=== PATIENT | male | born 1940 | race Caucasian/White ===

== ENCOUNTER 2023-08-20 07:53 | Day surgery (SDC) | payer MEDICARE, MEDICAID, SELFPAY ==
--- NOTE | 2023-08-20 07:10 | W.PREOPHP ---
Assessment and Plan Assessment and plan (1) Posterior subcapsular age-related cataract of left eye: Status: Acute Assessment and plan: Assessment: Dense nuclear/posterior subcapsular cataract of the left eye. Plan: Cataract extraction with lens implantation of the left eye. (2) Nuclear age-related cataract, left eye: Status: Acute Assessment and plan: Assessment: Dense nuclear/posterior subcapsular cataract of the left eye. Plan: Cataract extraction with lens implantation of the left eye. History of Present Illness History of Present Illness Chief Complaint: Progressive decreased vision, both eyes Narrative: The patient is an 82-year-old male who presents with progressive decreased vision in both eyes at both distance and near. He claims he can no longer see clearly enough to drive, read or ordoñez. On examination he was noted to have dense bilateral cataracts with visual acuity of 20/80 OD, 20/200 OS. The option of cataract surgery was offered to the patient and he wished to proceed. Review of Systems All systems reviewed & are unremarkable except as noted in HPI and below PFSH All Active Problems Posterior subcapsular age-related cataract of left eye (Acute) Nuclear age-related cataract, left eye (Acute) Medical History Myocardial infarction 1997 Urge incontinence of urine Osteoarthritis Obesity Enlarged prostate Hypertensive disorder Borderline hyperlipidemia Depressive disorder COPD (chronic obstructive pulmonary disease) Chronic kidney disease Stage 3 Arteriosclerosis of coronary artery Surgical History History of cholecystectomy History of carpal tunnel release History of surgery Chest surgery procedure History of orthopedic surgery H/O arthroscopic knee surgery History of cardiac catheterization 1997 stent placement, 2013 History of total right knee replacement Family History Other Diabetes Heart disease Hyperlipidemia Hypertension Stroke Social History Smoking/Tobacco Use Status: Former Tobacco Use Quit Date: 10/18/89 Smoking risk assessment performed?: Yes Alcohol Intake: former Drug use: Never Substance use type: does not use Housing: house Additional Social history: Unable to assess privatley Meds Allergies and Home Medications Allergies Allergy/AdvReac Type Severity Reaction Status Date / Time codeine Allergy Intermediate fever Verified 08/20/23 08:46 pneumococcal vaccine Allergy Unknown Verified 08/20/23 08:46 fluticasone AdvReac Intermediate Headache Verified 08/20/23 08:46 Home Medications Medication Instructions Recorded Confirmed Type acetaminophen 500 mg tablet 500 mg PO Q4H PRN 08/17/23 08/20/23 History (Acetaminophen Extra Strength) aspirin 81 mg tablet,delayed 81 mg PO DAILY 08/17/23 08/20/23 History release (Adult Low Dose Aspirin) atorvastatin 80 mg tablet 80 mg PO DAILY 08/17/23 08/20/23 History fluticasone propionate 50 1 spray intranasal DAILY PRN 08/17/23 08/20/23 History mcg/actuation nasal spray,suspension (Allergy Relief (fluticasone)) losartan 25 mg tablet 50 mg PO DAILY 08/17/23 08/20/23 History metoprolol succinate 200 mg 200 mg PO DAILY 08/17/23 08/20/23 History tablet,extended release 24 hr nitroglycerin 0.4 mg sublingual 0.4 mg sublingual Q5M PRN 08/17/23 08/20/23 History tablet (Nitrostat) omeprazole 20 mg capsule,delayed 20 mg PO DIRECTED 08/17/23 08/20/23 History release tamsulosin 0.4 mg capsule 0.8 mg PO DAILY 08/17/23 08/20/23 History torsemide 20 mg tablet 20 mg PO DIRECTED 08/17/23 08/20/23 History umeclidinium 62.5 mcg/actuation 1 inh inhalation DAILY 08/17/23 08/20/23 History blister powder for inhalation (Incruse Ellipta) Exam Eyes Other: Significant for visual acuity of 20/80 OD, 20/200 OS. Extract motility is normal. Intraocular pressure is 11 OU. Slit-lamp examination is significant for ectropion of the left lower lid. A dense nuclear/cortical/posterior subcapsular cataract is present OU. Funduscopic examination reveals disc cupping of 0.45 OU with normal vessels, macula, peripheral retina and vitreous. Resp Auscultation: clear to auscultation bilaterally Cardio Rate: regular rate Rhythm: regular rhythm
[2023-08-20 08:37] VITALS: BP 165/66; PULSE 66; RESP 18; TEMP 36.8; O2SAT 94
[2023-08-20] MEDS: Tropicam./Phenyleph. (1/2.5%) 5 ML BTL OS ×3 (08:43→09:00)
--- NOTE | 2023-08-20 09:09 | ANES.PREOP_ITS ---
General Info Date of Service Date Performed: 08/20/23 Height: 5 ft 7 in Weight: 90.9 kg Body Mass Index (BMI): 31.4 Surgical Procedure: Operation Date: 08/20/23 10:40 Proposed Procedure Side Surgeon p Cataract Extraction with IOL Implant Left Tato Uriarte MD Meds Allergies and Home Medications Allergies Allergy/AdvReac Type Severity Reaction Status Date / Time codeine Allergy Intermediate fever Verified 08/20/23 08:46 pneumococcal vaccine Allergy Unknown Verified 08/20/23 08:46 fluticasone AdvReac Intermediate Headache Verified 08/20/23 08:46 Home Medication Medication Instructions Recorded acetaminophen 500 mg tablet 500 mg PO Q4H PRN 08/17/23 (Acetaminophen Extra Strength) aspirin 81 mg tablet,delayed 81 mg PO DAILY 08/17/23 release (Adult Low Dose Aspirin) atorvastatin 80 mg tablet 80 mg PO DAILY 08/17/23 fluticasone propionate 50 1 spray intranasal DAILY PRN 08/17/23 mcg/actuation nasal spray,suspension (Allergy Relief (fluticasone)) losartan 25 mg tablet 50 mg PO DAILY 08/17/23 metoprolol succinate 200 mg 200 mg PO DAILY 08/17/23 tablet,extended release 24 hr nitroglycerin 0.4 mg sublingual 0.4 mg sublingual Q5M PRN 08/17/23 tablet (Nitrostat) omeprazole 20 mg capsule,delayed 20 mg PO DIRECTED 08/17/23 release tamsulosin 0.4 mg capsule 0.8 mg PO DAILY 08/17/23 torsemide 20 mg tablet 20 mg PO DIRECTED 08/17/23 umeclidinium 62.5 mcg/actuation 1 inh inhalation DAILY 08/17/23 blister powder for inhalation (Incruse Ellipta) Current Visit Medications: Current Medications Generic Name Dose Route Start Last Admin Trade Name Freq PRN Reason Stop Dose Admin Acetaminophen 1,000 mg 08/20/23 06:00 Acetaminophen 500 Mg Tab PO 09/19/23 05:59 Q4H PRN PRN Balanced Salt Solution 500 ml 08/20/23 06:00 Balanced Salt Soln.-Plus 500 Ml Bag OP 09/19/23 05:59 DIRECTED DANNY Miscellaneous Medication 0 ml 08/20/23 06:00 Prednisolone 1%, Moxifloxacin 0.5%, Nepafenac 0.1% 5ml Btl OS 09/19/23 05:59 DIRECTED [facility] Miscellaneous Medication 0 ml 08/20/23 06:00 08/20/23 09:00 Tropicam./Phenyleph. (1/2.5%) 5 Ml Btl OS 09/19/23 05:59 1 drp DIRECTED DANNY Administration Tetracaine HCl 0 ml 08/20/23 06:00 Tetracaine 0.5% 4 Ml Btl OS 09/19/23 05:59 DIRECTED [facility] PFSH Active Problems Active Problems: Problem Status Onset Code Posterior subcapsular age-related cataract of left eye H25.042 Nuclear age-related cataract, left eye H25.12 Medical History Medical History Myocardial infarction 1997 Urge incontinence of urine Osteoarthritis Obesity Enlarged prostate Hypertensive disorder Borderline hyperlipidemia Depressive disorder COPD (chronic obstructive pulmonary disease) Chronic kidney disease Stage 3 Arteriosclerosis of coronary artery Surgical History Surgical History History of cholecystectomy History of carpal tunnel release History of surgery Chest surgery procedure History of orthopedic surgery H/O arthroscopic knee surgery History of cardiac catheterization 1997 stent placement, 2013 History of total right knee replacement Tobacco Smoking/Tobacco Use Status: Former Tobacco Use Alcohol Alcohol Intake: former Substance Use Substance use: Never Substance use type: does not use Vital Signs and Lab Results Vital Signs Most Recent Vital Signs in EMR: Most Recent Vital Signs Temp Pulse Resp BP Pulse Ox 36.8 C 66 18 165/66 H 94 08/20/23 08:37 08/20/23 08:37 08/20/23 08:37 08/20/23 08:37 08/20/23 08:37 Lab Results Blood Type / Crossmatch: No Data to Display Complete Blood Count: No Data to Display Complete Metabolic Panel: No Data to Display Liver Function Panel: No Data to Display Coagulation Panel: No Data to Display Cardiac Panel: No Data to Display Arterial Blood Gas: No Data to Display Venous Blood Gas: No Data to Display Pancreas Panel: No Data to Display Thyroid Panel: No Data to Display Infectious Disease: No Data to Display Blood Cultures: No Data to Display Toxicology Panel: No Data to Display Anesthesia Assessment and Plan Anesthesia History Personal History: No History of Anesthesia Complications Family History: No Family History of Anesthesia Complications Exercise Tolerance Exercise Tolerance: Metabolic Equivalents>4 Pertinent Negatives Pertinent Negatives: No Symptoms of GERD Cardiac & Pulmonary Exam Cardiac Exam: Normal S1/S2 Heart Sounds Pulmonary Exam: Clear Bilateral Breath Sounds Implantable Cardiac Device Does patient have a Pacemaker or an ICD?: No Airway Exam Known Difficult Airway: No Mallampati Class: 3 Mouth Opening: Normal (> 3cm) Thyromental Distance: Greater than 3 cm Neck Range of Motion: Limited ROM Neck Circumference: Normal Teeth Condition: Generalized Poor Dentition ASA Classification ASA Score: ASA 3 Emergency Case?: No NPO Status NPO Status: NPO Clears >2 hours, Solids >8 hours Anesthesia Plan Resuscitation Status: Full Code Anesthesia Technique: MAC Anesthesia Airway Planned: Natural Airway Monitors Used: Standard Monitors
[2023-08-20 09:48] VITALS: BMI 31.4
[2023-08-20] MEDS: Tetracaine 0.5% 4 ML BTL OS (10:00)
[2023-08-20] MEDS: Povidone-Iodine Ophth 30 ML BTL (10:00)
[2023-08-20] MEDS: Balanced Salt Soln.-PLUS 500 ML BAG OP (10:02)
[2023-08-20] MEDS: Duovisc Viscoelastic System EACH 1 EACH (10:03)
[2023-08-20] MEDS: Lidocaine 1% Pres-Free 5 ML VIAL (10:03)
[2023-08-20] MEDS: Phenylephrine/Lidocaine (15/10) MG/ML 1 ML VIAL (10:04)
[2023-08-20] MEDS: Trypan Blue 0.06% 0.5 ML SYR (10:08)
[2023-08-20 10:39] VITALS: BP 129/60; PULSE 65; RESP 18; TEMP 36.9; O2SAT 96
--- NOTE | 2023-08-20 10:41 | W.PM.DSUDISC ---
Date of service: 08/20/23 Time of Service: 10:41 Discharge Plan Disposition Patient Disposition: Home Discharge Details Attending Provider: Tato Uriarte Primary Care Provider: Eliu Manzo Home Meds and New Rx's Prescriptions: No Action atorvastatin 80 mg tablet 80 mg PO DAILY fluticasone propionate [Allergy Relief (fluticasone)] 50 mcg/actuation spray,suspension 1 spray intranasal DAILY PRN Patient Comments: 08/20/23: pt has allergy to this, doesnt use Rx Instructions: administer into each nostril Incruse Ellipta 62.5 mcg/actuation blister with device 1 inh INHALATION DAILY losartan 25 mg tablet 50 mg PO DAILY metoprolol succinate 200 mg tablet extended release 24 hr 200 mg PO DAILY omeprazole 20 mg capsule,delayed release(DR/EC) 20 mg PO DIRECTED tamsulosin 0.4 mg capsule 0.8 mg PO DAILY torsemide 20 mg tablet 20 mg PO DIRECTED aspirin [Adult Low Dose Aspirin] 81 mg tablet,delayed release (DR/EC) 81 mg PO DAILY nitroglycerin [Nitrostat] 0.4 mg tablet, sublingual 0.4 mg sublingual Q5M PRN Patient Comments: 08/20/23 pt reports hasn't taken in years Rx Instructions: do not exceed 3 doses per episode acetaminophen [Acetaminophen Extra Strength] 500 mg tablet 500 mg PO Q4H PRN Discharge Instructions Stand Alone Forms: Post-op Topical Cataract, Dominguez Silvaey (DSU) Discharge Orders Discharge Orders: Discharge Order (Routine); Ordered 08/20/23 Ordered By: Tato Uriarte DS: Diagnosis Discharge Diagnosis (1) Posterior subcapsular age-related cataract of left eye: Status: Resolved (2) Nuclear age-related cataract, left eye: Status: Resolved (3) Cortical age-related cataract, left eye: Status: Resolved (4) Mature cataract: Status: Resolved
--- NOTE | 2023-08-20 10:43 | ROE_ITS ---
Date of service: 08/20/23 Time of Service: 10:43 Operative Note Operative Note DATE OF PROCEDURE: 08/20/23 PRE-OP DIAGNOSIS: Mature, advanced, nuclear/cortical/posterior subcapsular cataract, left eye Poorly dilating pupil, left eye, secondary to tamsulosin treatment Absent red reflex, left eye secondary to advanced cataract POST-OP DIAGNOSIS: same PROCEDURE: Cataract extraction using phacoemulsification with intraocular lens implant, left eye Pupillary dilation and iris stabilization with 7.0 mm pupillary expansion device Capsular staining with VisionBlue SURGEON: Tato Uriarte ANESTHESIA TYPE: Local By Surgeon and MAC Refer to Anesthesia Record PATHOLOGY: none sent COMPLICATIONS: None Patient was transported to: same day Patient's condition: stable Implants: Brock Clareon [id number] Indications: Progressive decreased vision due to cataract, left eye Procedure Description: CATARACT SURGERY OPERATIVE REPORT PREOPERATIVE DIAGNOSIS: Mature, advanced, nuclear/cortical/posterior subcapsular cataract, left eye Poorly dilating pupil, left eye, secondary to tamsulosin treatment Absent red reflex, left eye secondary to mature cataract POSTOPERATIVE DIAGNOSIS: Same OPERATION: Cataract extraction using phacoemulsification with posterior chamber intraocular lens implant, left eye. Pupillary dilation and iris stabilization using 7.0 mm pupillary expansion device Capsular staining with VisionBlue IOL: IOL [employer]/Model: Brock Clareon [id number] IOL Power: + 23.5 diopters IOL Serial Number: [id number] Optic Diameter: 6.0mm Haptic/Overall Diameter: 13.0mm PHACO INFO: Brock McPhyurion Vision System with OZil and Active Fluidics Cumulative Dispersed Energy (CDE): 44.96 seconds SURGEON: Tato Uriarte MD, DEZ ANESTHESIA: Monitored Anesthesia Care (MAC), with local sub-tenon's anesthetic infiltration COMPLICATIONS: None SPECIMENS: None INDICATIONS FOR PROCEDURE: The patient is an 83-year-old male who presented with complaints of diminished visual acuity in his left eye. He is noted to have a dense, mature cataract in the left eye with poor visual acuity and no view of the retina. He also takes tamsulosin with a very poorly dilating pupil. The option of cataract surgery was offered to the patient and he wished to proceed. See office notes for detailed information. PROCEDURE: The correct surgical eye was identified and marked as the left eye and the pupil was dilated in the preoperative area using mydriatics and cycloplegics. The dilated pupil size was 4.0 mm. The patient elected to proceed without oral sedation. The patient was brought to the operating room where cardiopulmonary monitoring was instituted and surgical time-out was performed, confirming the correct operative eye and IOL power. Topical anesthesia was administered and ophthalmic povidone-iodine 5% was instilled into the conjunctival fornices. The go-ocular area was prepped with Betadine 10% solution and draped in the usual sterile fashion for intraocular surgery, including an aperture drape. A Tegaderm transparent film dressing was cut in half and used to cover the lashes and lid margins. Care was taken to sequester the lashes and lid margins under the Tegaderm dressing. A lid specu lum was placed between the lids of the operative eye and the Brock GRIDOR Revalia operating microscope was maneuvered into position. Jim scissors were then used to make a conjunctival buttonhole approximately 6mm posterior to the limbus in the inferonasal quadrant. Blunt dissection was carried out to expose bare sclera, and a blunt-tipped sub-tenon?s anesthesia cannula was introduced and passed posteriorly along the globe where non- preserved plain lidocaine was injected into posterior sub-Tenon?s space. A sideport knife was used to make a paracentesis port. Intraocular phenylephrine/lidocaine was injected into the anterior chamber. The anterior chamber was then filled with cohesive viscoelastic. A keratome knife was used construct a two-plane clear corneal tunnel extending 2.0mm into clear cornea. A 7.0 mm pupillary expansion device was inserted into the pupillary space using a Kuglen hook. The cohesive viscoelastic was then removed using the irrigation/aspiration handpiece. VisionBlue was then injected into the anterior chamber and painted over the anterior lens capsule and allowed to sit for 30 seconds. VisionBlue was then irrigated out of the eye, and the anterior chamber filled with Viscoat. A flap was raised on the anterior capsule and capsulorhexis forceps were used to complete a continuous curvilinear capsulorhexis of 5.0 mm. Balanced salt solution was then used to perform cortical cleaving hydrodissection and nuclear hydrodelineation until the lens could be freely rotated within the capsular bag. The lens nucleus was then disassembled and removed within the capsular bag and iris plane using phacoemulsification. A deep groove was sculpted in the central nucleus, which was then rotated 180 degrees and the groove continued. The nucleus was then split into 2 halves, although there was a fibrous posterior plate which was difficult to crack. Additional sculpting was performed until the nucleus could be cracked into 2 halves. Each James nucleus was then subtyped into multiple small fragments, under the protection of the additional dispersive viscoelastic. Residual cortical material was removed using the irrigation/aspiration handpiece. There was essentially no residual cortical material after removal of the dense nucleus. The posterior capsule was carefully polished to remove as much residual lens epithelial cells as safely possible. The capsular bag was then inflated and the anterior chamber deepened with viscoelastic. The lens implant described above was inserted into the capsular bag using the Brock Autonome Injector. A Kuglen hook was used to dial the IOL into position. The pupillary expansion device was then removed in the reverse order of its insertion. Residual viscoelastic was then removed first from posterior to the IOL, then from the anterior chamber using the I/A handpiece. The lens implant was noted to center nicely within the capsular bag. The incisions were stromally hydrated, and the anterior chamber was reformed using BSS. Then 0.5cc of moxifloxacin 1.0mg/ml were injected into the capsular bag and anterior chamber. The incisions were checked with a Weck spear and found to be secure. Several drops of ophthalmic povidone-iodine 5% were then applied to the eye followed by two drops of Imprimis combination prednisolone/moxifloxacin/nepafenac solution. The drapes were removed and a clear plastic protective eye shield was placed over the eye. The patient was then returned to Same Day Surgery in stable condition.
--- NOTE | 2023-08-20 10:57 | W.ANESPOSTOP ---
Postoperative Evaluation Date, Time and Location Date Performed: 08/20/23 Time Performed: 10:53 Patient Location: Day Surgery Unit Vital Signs Most Recent Imported Vital Signs: Most Recent Vital Signs Temp Pulse Resp BP Pulse Ox 36.9 C 65 18 129/60 96 08/20/23 10:39 08/20/23 10:39 08/20/23 10:39 08/20/23 10:39 08/20/23 10:39 Pain Score Most Recent Pain Score: Most Recent Pain Score Pain Level 0 08/20/23 10:39 Assessment Mental Status: Awake (Alert & Oriented to Patient Baseline) Airway and Respiratory Function: Patent airway with normal (patient baseline) respiratory exam Cardiovascular Function: Hemodynamically Stable Hydration Status: Adequately Hydrated Nausea & Vomiting: No Nausea or Vomiting Pain: Pt. Denies Any Pain Peripheral Nerve Block: Patient did not receive a nerve block
== END 2023-08-20 11:01 | disposition home or self-care (01) ==
LOC: SUR 07:56
PROVIDERS: PCP Family Medicine; Visit Provider Ophthalmology
PROC: (CPT 66982; principal; 2023-08-20 10:30)
DX: H25.042 Posterior subcapsular polar age-related cataract, left eye (principal); H25.12 Age-related nuclear cataract, left eye; H25.012 Cortical age-related cataract, left eye; I10 Essential (primary) hypertension
CPT/HCPCS: 66982; 00123; V2632

== ENCOUNTER 2023-09-03 11:10 | Day surgery (SDC) | payer MEDICARE, MEDICAID, SELFPAY ==
[2023-09-03 11:15] VITALS: BP 167/63; PULSE 65; RESP 16; TEMP 36.4; O2SAT 95
[2023-09-03] MEDS: Tropicam./Phenyleph. (1/2.5%) 5 ML BTL OD ×3 (11:23→11:35)
[2023-09-03 11:40] VITALS: BMI 31.5
--- NOTE | 2023-09-03 11:40 | W.ANESPRE ---
General Info Date of Service Date Performed: 09/03/23 Height: 5 ft 7 in Weight: 91.3 kg Body Mass Index (BMI): 31.5 Surgical Procedure: Operation Date: 09/03/23 14:40 Proposed Procedure Side Surgeon p Cataract Extraction with IOL Implant Right Tato Uriarte MD Meds Allergies and Home Medications Allergies Allergy/AdvReac Type Severity Reaction Status Date / Time codeine Allergy Intermediate fever Verified 09/03/23 11:26 pneumococcal vaccine Allergy Unknown Verified 09/03/23 11:26 fluticasone AdvReac Intermediate Headache Verified 09/03/23 11:26 Home Medication Medication Instructions Recorded acetaminophen 500 mg tablet 500 mg PO Q4H PRN 08/17/23 (Acetaminophen Extra Strength) aspirin 81 mg tablet,delayed 81 mg PO DAILY 08/17/23 release (Adult Low Dose Aspirin) atorvastatin 80 mg tablet 80 mg PO DAILY 08/17/23 fluticasone propionate 50 1 spray intranasal DAILY PRN 08/17/23 mcg/actuation nasal spray,suspension (Allergy Relief (fluticasone)) losartan 25 mg tablet 50 mg PO DAILY 08/17/23 metoprolol succinate 200 mg 200 mg PO DAILY 08/17/23 tablet,extended release 24 hr nitroglycerin 0.4 mg sublingual 0.4 mg sublingual Q5M PRN 08/17/23 tablet (Nitrostat) omeprazole 20 mg capsule,delayed 20 mg PO DIRECTED 08/17/23 release tamsulosin 0.4 mg capsule 0.8 mg PO DAILY 08/17/23 torsemide 20 mg tablet 20 mg PO DIRECTED 08/17/23 umeclidinium 62.5 mcg/actuation 1 inh inhalation DAILY 08/17/23 blister powder for inhalation (Incruse Ellipta) Current Visit Medications: Current Medications Generic Name Dose Route Start Last Admin Trade Name Freq PRN Reason Stop Dose Admin Acetaminophen 1,000 mg 09/03/23 06:00 Acetaminophen 500 Mg Tab PO 10/03/23 05:59 Q4H PRN PRN Balanced Salt Solution 500 ml 09/03/23 06:00 Balanced Salt Soln.-Plus 500 Ml Bag OP 10/03/23 05:59 DIRECTED DANNY Miscellaneous Medication 0 ml 09/03/23 06:00 09/03/23 11:35 Tropicam./Phenyleph. (1/2.5%) 5 Ml Btl OD 10/03/23 05:59 1 drp DIRECTED DANNY Administration Miscellaneous Medication 0 ml 09/03/23 06:00 Prednisolone 1%, Moxifloxacin 0.5%, Bromfenac 0.09% 5ml Btl OD 10/03/23 05:59 DIRECTED DANNY Tetracaine HCl 0 ml 09/03/23 06:00 Tetracaine 0.5% 4 Ml Btl OD 10/03/23 05:59 DIRECTED DANNY PFSH Active Problems Active Problems: Problem Status Onset Code Posterior subcapsular age-related cataract, right eye H25.041 Nuclear age-related cataract, right eye H25.11 Mature cataract H26.8 Cortical age-related cataract, left eye H25.012 Posterior subcapsular age-related cataract of left eye H25.042 Nuclear age-related cataract, left eye H25.12 Medical History Medical History Myocardial infarction 1997 Urge incontinence of urine Osteoarthritis Obesity Enlarged prostate Hypertensive disorder Borderline hyperlipidemia Depressive disorder COPD (chronic obstructive pulmonary disease) Chronic kidney disease Stage 3 Arteriosclerosis of coronary artery Surgical History Surgical History History of cataract surgery History of cholecystectomy History of carpal tunnel release History of surgery Chest surgery procedure History of orthopedic surgery H/O arthroscopic knee surgery History of cardiac catheterization 1997 stent placement, 2013 History of total right knee replacement Tobacco Smoking/Tobacco Use Status: Former Tobacco Use Alcohol Alcohol Intake: former Substance Use Substance use: Never Substance use type: does not use Vital Signs and Lab Results Vital Signs Most Recent Vital Signs in EMR: Most Recent Vital Signs Temp Pulse Resp BP Pulse Ox 36.4 C L 65 16 167/63 H 95 09/03/23 11:15 09/03/23 11:15 09/03/23 11:15 09/03/23 11:15 09/03/23 11:15 Lab Results Blood Type / Crossmatch: No Data to Display Complete Blood Count: No Data to Display Complete Metabolic Panel: No Data to Display Liver Function Panel: No Data to Display Coagulation Panel: No Data to Display Cardiac Panel: No Data to Display Arterial Blood Gas: No Data to Display Venous Blood Gas: No Data to Display Pancreas Panel: No Data to Display Thyroid Panel: No Data to Display Infectious Disease: No Data to Display Blood Cultures: No Data to Display Toxicology Panel: No Data to Display Anesthesia Assessment and Plan Anesthesia History Personal History: No History of Anesthesia Complications Family History: No Family History of Anesthesia Complications Exercise Tolerance Exercise Tolerance: Metabolic Equivalents>4 Cardiac & Pulmonary Exam Cardiac Exam: Normal S1/S2 Heart Sounds Pulmonary Exam: Clear Bilateral Breath Sounds Implantable Cardiac Device Does patient have a Pacemaker or an ICD?: No Airway Exam Known Difficult Airway: No Mallampati Class: 3 Mouth Opening: Normal (> 3cm) Thyromental Distance: Greater than 3 cm Neck Range of Motion: Limited ROM Neck Circumference: Normal Teeth Condition: Generalized Poor Dentition ASA Classification ASA Score: ASA 3 Emergency Case?: No NPO Status NPO Status: NPO Clears >2 hours, Solids >8 hours Anesthesia Plan Resuscitation Status: Full Code Anesthesia Technique: MAC Anesthesia Airway Planned: Natural Airway Monitors Used: Standard Monitors
[2023-09-03] MEDS: Duovisc Viscoelastic System EACH 1 EACH (12:28)
[2023-09-03] MEDS: Tetracaine 0.5% 4 ML BTL OD (12:29)
[2023-09-03] MEDS: Balanced Salt Soln.-PLUS 500 ML BAG OP (12:29)
[2023-09-03] MEDS: Lidocaine 1% Pres-Free 5 ML VIAL (12:30)
[2023-09-03] MEDS: Phenylephrine/Lidocaine (15/10) MG/ML 1 ML VIAL (12:30)
[2023-09-03] MEDS: Povidone-Iodine Ophth 30 ML BTL (12:31)
[2023-09-03] MEDS: Trypan Blue 0.06% 0.5 ML SYR (12:39)
[2023-09-03 12:58] VITALS: BP 173/69; PULSE 62; RESP 16; TEMP 36.7; O2SAT 95
--- NOTE | 2023-09-03 13:00 | W.PM.DSUDISC ---
Date of service: 09/03/23 Time of Service: 13:00 Discharge Plan Disposition Patient Disposition: Home Discharge Details Attending Provider: Tato Uriarte Primary Care Provider: Eliu Manzo Home Meds and New Rx's Prescriptions: No Action atorvastatin 80 mg tablet 80 mg PO DAILY fluticasone propionate [Allergy Relief (fluticasone)] 50 mcg/actuation spray,suspension 1 spray intranasal DAILY PRN Patient Comments: 08/20/23: pt has allergy to this, doesnt use Rx Instructions: administer into each nostril Incruse Ellipta 62.5 mcg/actuation blister with device 1 inh INHALATION DAILY losartan 25 mg tablet 50 mg PO DAILY metoprolol succinate 200 mg tablet extended release 24 hr 200 mg PO DAILY omeprazole 20 mg capsule,delayed release(DR/EC) 20 mg PO DIRECTED tamsulosin 0.4 mg capsule 0.8 mg PO DAILY torsemide 20 mg tablet 20 mg PO DIRECTED aspirin [Adult Low Dose Aspirin] 81 mg tablet,delayed release (DR/EC) 81 mg PO DAILY nitroglycerin [Nitrostat] 0.4 mg tablet, sublingual 0.4 mg sublingual Q5M PRN Patient Comments: 08/20/23 pt reports hasn't taken in years Rx Instructions: do not exceed 3 doses per episode acetaminophen [Acetaminophen Extra Strength] 500 mg tablet 500 mg PO Q4H PRN Discharge Instructions Stand Alone Forms: Post-op Topical Cataract, Dominguez Silvaey (DSU) Discharge Orders Discharge Orders: Discharge Order (Routine); Ordered 09/03/23 Ordered By: Tato Uriarte DS: Diagnosis Discharge Diagnosis (1) Posterior subcapsular age-related cataract, right eye: Status: Resolved (2) Nuclear age-related cataract, right eye: Status: Resolved
--- NOTE | 2023-09-03 13:01 | W.PM.OP ---
Date of service: 09/03/23 Time of Service: 13:01 Operative Note Operative Note DATE OF PROCEDURE: 09/03/23 PRE-OP DIAGNOSIS: Dense nuclear/posterior subcapsular cataract, right eye Poorly dilating pupil, right eye Absent red reflex, right eye POST-OP DIAGNOSIS: same PROCEDURE: Cataract extraction using phacoemulsification with intraocular lens implant, right eye SURGEON: Tato Uriarte ANESTHESIA TYPE: Local By Surgeon and MAC Refer to Anesthesia Record ESTIMATED BLOOD LOSS: 0 PATHOLOGY: none sent COMPLICATIONS: None Patient was transported to: same day Patient's condition: stable Implants: Brock Clareon [id number] Indications: Progressive decreased vision due to cataract, right eye Poorly dilating pupil, right eye Procedure Description: CATARACT SURGERY OPERATIVE REPORT PREOPERATIVE DIAGNOSIS: Dense nuclear/posterior subcapsular cataract, right eye Poorly dilating pupil, right eye Absent red reflex, right eye POSTOPERATIVE DIAGNOSIS: Same OPERATION: Cataract extraction using phacoemulsification with posterior chamber intraocular lens implant, right eye. Pupillary dilation and iris stabilization with 7.0 mm pupillary expansion device Capsular staining with VisionBlue IOL: IOL Marble Installer/Model: Brock Clareon [id number] IOL Power: + 23.5 diopters IOL Serial Number: [id number] Optic Diameter: 6.0mm Haptic/Overall Diameter: 13.0mm PHACO INFO: Brock Centurion Vision System with OZil and Active Fluidics Cumulative Dispersed Energy (CDE): 29.46 seconds SURGEON: Tato Uriarte MD, DEZ ANESTHESIA: Monitored Anesthesia Care (MAC), with local sub-tenon's anesthetic infiltration COMPLICATIONS: None SPECIMENS: None INDICATIONS FOR PROCEDURE: The patient is an 83-year-old male with history of 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 He is significantly symptomatic that he desires cataract surgery and attempt to improve and maximize his vision. He has already undergone cataract surgery in the left eye and is doing well postoperatively. He now presents for cataract surgery in the right eye. See office notes for detailed information. PROCEDURE: The correct surgical eye was identified and marked as the right eye and the pupil was dilated in the preoperative area using mydriatics and cycloplegics. The dilated pupil size was 3.0 mm. The patient elected to proceed without oral sedation. The patient was brought to the operating room where cardiopulmonary monitoring was instituted and surgical time-out was performed, confirming the correct operative eye and IOL power. Topical anesthesia was administered and ophthalmic povidone-iodine 5% was instilled into the conjunctival fornices. The go-ocular area was prepped with Betadine 10% solution and draped in the usual sterile fashion for intraocular surgery, including an aperture drape. A Tegaderm transparent film dressing was cut in half and used to cover the lashes and lid margins. Care was taken to sequester the lashes and lid margins under the Tegaderm dressing. A lid speculum was placed between the lids of the operative eye and the Crystal-Kellee operating microscope was maneuvered into position. Jim scissors were then used to make a conjunctival buttonhole approximately 6mm posterior to the limbus in the inferonasal quadrant. Blunt dissection was carried out to expose bare sclera, and a blunt-tipped sub-tenon?s anesthesia cannula was introduced and passed posteriorly along the globe where non-preserved plain lidocaine was injected into posterior sub-Tenon?s space. A sideport knife was used to make a paracentesis port. Intraocular phenylephrine/lidocaine was injected into the anterior chamber. The anterior chamber was then filled with cohesive viscoelastic. A keratome knife was used to construct a two--plane clear corneal tunnel extending 2.0mm into clear cornea. A 7.0 mm pupillary expansion device was inserted into the pupillary space and engaged with a Kuglen hook. The viscoelastic was then removed using the irrigation/aspiration handpiece, and VisionBlue was then injected into the anterior chamber and allowed to sit for 30 seconds. The VisionBlue was then irrigated out with balanced salt solution, and the anterior chamber filled with dispersive viscoelastic. A flap was raised on the anterior capsule and capsulorhexis forceps were used to complete a continuous curvilinear capsulorhexis of 5.5 mm. Balanced salt solution was then used to perform cortical cleaving hydrodissection and nuclear hydrodelineation until the lens could be freely rotated within the capsular bag. The lens nucleus was then disassembled and removed within the capsular bag and iris plane using phacoemulsification. A deep groove was sculpted into the central nucleus, which was then rotated 180 degrees and the groove continued. The lens was then cracked into 2 halves, and each half was subtyped into multiple small fragments under additional dispersive viscoelastic protection. Residual cortical material was removed using the I/A handpiece. The posterior capsule was carefully polished to remove as much residual lens epithelial cells as safely possible. There was some residual posterior subcapsular plaque centrally which could not be safely removed. The capsular bag was then inflated and the anterior chamber deepened with cohesive viscoelastic. The lens implant described above was inserted into the capsular bag using the Brock Autonome Injector. A Kuglen hook was used to dial the IOL into position. The pupillary expansion device was then removed in the reverse order of its insertion. Residual viscoelastic was then removed first from posterior to the IOL, then from the anterior chamber using the I/A handpiece. The lens implant was noted to center nicely within the capsular bag. The incisions were stromally hydrated, and the anterior chamber was reformed using BSS. Then 0.5cc of moxifloxacin 1.0mg/ml were injected into the capsular bag and anterior chamber. The incisions were checked with a Weck spear and found to be secure. Several drops of ophthalmic povidone-iodine 5% were then applied to the eye followed by two drops of Imprimis combination prednisolone/moxifloxacin/nepafenac solution. The drapes were removed and a clear plastic protective eye shield was placed over the eye. The patient was then returned to [facility] Day Surgery in stable condition.
--- NOTE | 2023-09-03 13:31 | W.ANESPOSTOP ---
Postoperative Evaluation Date, Time and Location Date Performed: 09/03/23 Time Performed: 13:05 Patient Location: Day Surgery Unit Vital Signs Most Recent Imported Vital Signs: Most Recent Vital Signs Temp Pulse Resp BP Pulse Ox 36.7 C 62 16 173/69 H 95 09/03/23 12:58 09/03/23 12:58 09/03/23 12:58 09/03/23 12:58 09/03/23 12:58 Pain Score Most Recent Pain Score: Most Recent Pain Score Pain Level 0 09/03/23 12:58 Assessment Mental Status: Awake (Alert & Oriented to Patient Baseline) Airway and Respiratory Function: Patent airway with normal (patient baseline) respiratory exam Cardiovascular Function: Hemodynamically Stable Hydration Status: Adequately Hydrated Nausea & Vomiting: No Nausea or Vomiting Pain: Pt. Denies Any Pain Peripheral Nerve Block: Patient did not receive a nerve block
== END 2023-09-03 13:20 | disposition home or self-care (01) ==
LOC: SUR 11:10
PROVIDERS: PCP Family Medicine; Visit Provider Ophthalmology
PROC: (CPT 66982; principal; 2023-09-03 14:30)
DX: H25.041 Posterior subcapsular polar age-related cataract, right eye (principal); H25.11 Age-related nuclear cataract, right eye; I10 Essential (primary) hypertension; Z98.42 Cataract extraction status, left eye
CPT/HCPCS: 66982; 00123; V2632